=== PATIENT | female | born 1970 | race Caucasian/White ===

== ENCOUNTER → 2016-07-13 | Outpatient (CLI) | payer BC | END | disposition disaster alternative care site (69) | LOC: GRAD 15:24 | PROC: BP38Y0Z Magnetic Resonance Imaging (MRI) of Right Shoulder using Other Contrast, Unenhanced and Enhanced (ICD-10-PCS; principal; 2016-07-13) | DX: M25.511 Pain in right shoulder (principal); M75.101 Unspecified rotator cuff tear or rupture of right shoulder, not specified as traumatic; S43.431A Superior glenoid labrum lesion of right shoulder, initial encounter ==